=== PATIENT | male | born 2000 | race Caucasian/White ===

== ENCOUNTER 2021-06-09 15:41 | Emergency (ER) | payer BC, SELFPAY ==
[2021-06-09 15:41] VITALS: BP 131/86; PULSE 81; RESP 16; TEMP 36.7; O2SAT 100
--- NOTE | 2021-06-09 16:15 | DI.RAD_ITS ---
Exam(s) XR CLAVICLE LT EXAM: XR CLAVICLE LT CLINICAL HISTORY: Trauma, Deformity. TECHNIQUE: 2D digital imaging was performed. COMPARISON: No exams were available for comparison FINDINGS: There is a comminuted displaced midshaft fracture of the left clavicle. AC joint is not distracted. No subjacent rib fractures evident. No pneumothorax IMPRESSION: Comminuted displaced midshaft clavicle fracture. DATA REPOSITORY: RADIATION DOSE DELIVERED:
--- NOTE | 2021-06-09 16:15 | DI.CT_ITS ---
Exam(s) CT HEAD CERVICAL SPINE WO EXAM: CT HEAD CERVICAL SPINE WO CLINICAL HISTORY: Closed Head Injury, Snowboarding. TECHNIQUE: Imaging Protocol: Axial computed tomography images with coronal and sagittal reformatted images were created and reviewed COMPARISON: No exams were available for comparison FINDINGS: BRAIN: There are no skull fractures nor fluid in the visualized paranasal sinuses. There is no evidence of intracranial hemorrhage, mass effect, or shift of midline structures. There are no extra-axial fluid collections. The ventricles are not enlarged or shifted and there is no blo od within the ventricular system nor within the basal cisterns. CERVICAL SPINE: There is no evidence of fracture nor listhesis. No significant prevertebral soft tissue swelling. There is no significant facet joint malalignment. No significant osseous lesions evident. IMPRESSION: No acute intracranial findings on this noninfused CT scan of the brain. No evidence of cervical spine fracture, malalignment, nor acute compromise of the cervical spinal can al. Report called by myself to ER 06/09/2021 at 5:21 p.m.. RADIATION DOSE DELIVERED: 1,557.23mGy.cm Total DLP DATA REPOSITORY: All CT scans at this facility are submitted to the National Radiology Data Registry (NRDR) Dose Index Registry (DIR) with the [employer] (ACR). RADIATION OPTIMIZATION: All CT scans at this facility use at least one of these dose optimization te chniques: automated exposure control; mA and/or kV adjustment per patient size (includes targeted exa ms where dose is matched to clinical indication); or iterative reconstruction.
--- NOTE | 2021-06-09 16:21 | ED.GENADUL_ITS ---
Discharge Plan Disposition Patient Disposition: HOME Condition: Stable Discharge Details Clinical Impression: Closed fracture of left clavicle, Closed head injury due to snowboarding Primary Care Provider: Unknown,Unknown ED Provider: Michelle Eddy Home Meds and New Rx's Prescriptions: No Action No Known Home Meds 0RF Discharge Instructions Instructions: Clavicle Fracture (ED), Head Injury (ED) Additional Instructions: Please present to the day surgery unit at 7 AM on June 11. Do not eat or drink anything other than small sips of water after midnight on Friday night. Dr. Negrete orthopedic surgeon will call you tomorrow to discuss details. Wear sling for comfort. Rest, ice. Please take Tylenol or Ibuprofen with food every 4-6 hours as needed for pain and swelling. Please return to the emergency department for any worsening headache, nausea vomiting, abdominal pain, chest pain or any concerns. Referrals: Jacky Negrete MD [ [facility] STAFF PHYSICIAN] - 06/11/21 7:00 am Medical Decision Making 20-year-old male presents to the ER status post snowboarding accident. Patient was going over a jump when he landed wrong and fell face first and slid down the mountain. Patient is unsure of LOC consciousness. He does have some superficial abrasions noted to his forehead and bridge of his nose. He also is complaining of some left clavicle pain. CT head and C-spine ordered, x-ray of left clavicle, ibuprofen and Zofran. CT Head and C-spine: IMPRESSION: No acute intracranial findings on this noninfused CT scan of the brain. No evidence of cervical spine fracture, malalignment, nor acute compromise of the cervical spinal canal. XR Clavicle: FINDINGS: There is a comminuted displaced midshaft fracture of the left clavicle. AC joint is not distracted. No subjacent rib fractures evident. No pneumothorax IMPRESSION: Comminuted displaced midshaft clavicle fracture. 1739: Discussed case with Dr. Negrete who is on-call for orthopedic surgery he does recommend surgery. He states that patient can present to day surgery unit at 7 AM on Friday and maintain n.p.o. status after midnight on Friday he recommends a sling and rest. I did discuss recommendation with patient who verbalizes understanding and is in agreement with plan. Patient given discharge instructions and strict return instructions he verbalizes understanding. Discussed home care patient was placed in sling prior to discharge. This text was generated using [employer] dictation system, please disregard any oddities of phrase or misspellings. HPI General Mode of arrival: EMS . Date/Time Provider Initiated Documentation: 06/09/21 16:11 . Limitations to Documentation: no limitations . Information obtained by: patient and RN notes reviewed . HPI Narrative: 20-year-old male presents to the ER status post snowboarding accident. Patient was going over a jump when he landed wrong and fell face first and slid down the mountain. Patient is unsure of LOC consciousness. He does have some superficial abrasions noted to his forehead and bridge of his nose. He also is complaining of some left clavicle pain. There is deformity and swelling noted to the mid clavicular area. Elbow is full range of motion, no tenderness or de formity. Denies any chest pain, no abdominal pain. Last tetanus shot was approximately 2 years ago. He did not take any medications prior to arrival. He did report an episode where he became dizzy and nauseous however that has resolved. He denies any blurry vision or double vision. No other signs of trauma. Related Data Home Medications Medication Instructions Recorded Confirmed Unknown [No Known Home Meds] 06/09/21 06/09/21 Allergies Allergy/AdvReac Type Severity Reaction Status Date / Time No Known Allergies Allergy Unverified 06/09/21 15:45 General Stated Complaint: Trauma DENNISE: 2 Review of Systems All systems reviewed & are unremarkable except as noted in HPI and below Musculoskeletal Musculoskeletal: Reports as per HPI and Reports deformity Integumentary/Breasts Skin/Breast: Reports wounds (Abrasions to face) [facility] All Active Problems (Updated 06/09/21 @ 17:43 by Michelle Eddy) Closed fracture of left clavicle (Acute) Closed head injury due to snowboarding (Acute) Social History Smoking/Tobacco Use Status: Never Smoking risk assessment performed?: Yes Alcohol Intake: current Alcohol Intake frequency: holidays/special occasions only Substance use type: does not use Exam Narrative Exam Narrative: General: Well Developed, Awake and Alert, conversant. Skin: Warm and Dry HEENT: Head: No palpable deformities, Normocephalic Eyes: Pupils PERRLA, EOM's intact. No periorbital eccymosis or step off Ears: Canal patent. Tympanic membranes are clear . No saenz's sign, no hemptympanum. Nose/Face: Superficial abrasions noted to forehead and bridge of nose. There is some swelling noted to the bridge of the nose, no signs of epistaxis. Facial bones nontender to palpation and stable with manipulation. Mouth/Throat: No intraoral trauma. Teeth and mandible are intact. Neck: No midline tenderness, no step off, no deformity to palpation of C-spine. Trachea midline. Chest: No surface trauma. Nontender without crepitus or deformity. Lungs clear to ausculatation bilaterally. Heart: RRR, no rubs, murmurs or gallop. Abdomen: No abrasions, ecchymosis, or surface trauma. Nondistended. Nontender to palpation no guarding, rebound, or rigidity. Pelvis: Nontender to palpation and stable to compression. Femoral pulses strong and equal Extremities: no surface trauma. Sensation intact. Peripheral pulses intact and equal. Left clavicle tenderness. Swelling noted at the mid clavicular area. Neuro: ANO x4, GCS 15, cranial nerves II through XII intact. Motor and sensory exam nonfocal. Reflexes are symmetric. Course Vital Signs Vital signs: Vital Signs Temperature 36.7 C 06/09/21 15:41 Pulse 81 06/09/21 15:41 Respiratory Rate 16 06/09/21 15:41 Blood Pressure 131/86 06/09/21 15:41 Pulse Oximetry 100 06/09/21 15:41 Temperature 36.7 C 06/09/21 15:41 Temperature Source Skin 06/09/21 15:41 Pulse 81 06/09/21 15:41 Respiratory Rate 16 06/09/21 15:41 Respiratory Effort 06/09/21 15:56 Respiratory Depth Normal 06/09/21 15:56 Respiratory Pattern Normal 06/09/21 15:56 Blood Pressure 131/86 06/09/21 15:41 Blood Pressure Position Supine 06/09/21 15:41 Pulse Oximetry 100 06/09/21 15:41 Oxygen Delivery Method Room Air 06/09/21 15:41 Oxygen Flow Rate 0 06/09/21 15:41 Pain Level 7 06/09/21 15:56
[2021-06-09] MEDS: Ondansetron O.D.T. 4 MG TABEF PO (17:00)
[2021-06-09] MEDS: Ibuprofen 600 MG TAB PO (17:00)
[2021-06-09 17:01] VITALS: BP 115/65; PULSE 81; RESP 16; O2SAT 99
--- NOTE | 2021-06-09 17:40 | DI.VRAD_ITS ---
PROCEDURE INFORMATION: Exam: CT Head Without Contrast Exam date and time: 06/09/2021 4:21 PM Age: 20 years old Clinical indication: Other: Closed head injury, snowboarding; Other: Snowboarding accident TECHNIQUE: Imaging protocol: Computed tomography of the head without contrast. COMPARISON: No relevant prior studies available. FINDINGS: Brain: Normal. No intraxial or extraaxial hemorrhage. No infarct visible at this time. Unremarkable white matter. No mass effect. No significant involutional change. Cerebral ventricles: Normal. No ventriculomegaly or midline shift. Pituitary gland and sella: Normal. No enlargement. Paranasal sinuses: Visualized sinuses are unremarkable. No fluid levels or mucosal thickening. Mastoid air cells: Visualized mastoid air cells are well aerated. Orbital cavity: Unremarkable. Vasculature: No significant atherosclerotic calcification. Bones/joints: Unremarkable. No acute fracture. Soft tissues: Unremarkable. IMPRESSION: Normal head CT. PROCEDURE INFORMATION: Exam: CT Cervical Spine Without Contrast Exam date and time: 06/09/2021 4:21 PM Age: 20 years old Clinical indication: Other: Closed head injury, snowboarding; Other: Snowboarding accident TECHNIQUE: Imaging protocol: Computed tomography images of the cervical spine without contrast. COMPARISON: No relevant prior studies available. FINDINGS: Bones/joints: Vertebral bodies are normal in height and alignment with no fracture. Facet joints show no significant degenerative change. Discs/Spinal canal/Neural foramina: No significant disc protrusion. No severe spinal canal stenosis. No significant neural foraminal narrowing. Lungs: Lung apices are clear. Soft tissues: Unremarkable. No prevertebral soft tissue swelling. IMPRESSION: No acute findings. Dictated and Authenticated by: Lg Meyers MD. Ordering:NAMITA Martinez MD
[2021-06-09 18:27] LABS: Source Nasal/Nares
[2021-06-09 19:05] LABS: COVID-19 PCR Negative (Negative)
== END 2021-06-09 18:22 | disposition home or self-care (01) ==
PROVIDERS: Emergency Provider Registered Nurse Emergency
DX: S42.022A Displaced fracture of shaft of left clavicle, initial encounter for closed fracture (principal); S09.8XXA Other specified injuries of head, initial encounter; V00.311A Fall from snowboard, initial encounter
CPT/HCPCS: 87635; 99283; 99284; 70450; 72125; 73000

== ENCOUNTER 2021-06-11 06:54 | Day surgery (SDC) | payer BC, SELFPAY ==
[2021-06-11] VITALS (14 sets, daily range): BP systolic 97–130; BP diastolic 48–76; PULSE 55–79; RESP 12–20; TEMP 36.3–37.1; O2SAT 94–100; BMI 21.8
--- NOTE | 2021-06-11 06:23 | ANES.PREOP_ITS ---
General Info Surgical Procedure: Operation Date: 06/11/21 08:40 Proposed Procedure Side Surgeon p Shoulder ORIF Clavicle Left Jacky Negrete MD Meds Allergies and Home Medications Allergies Allergy/AdvReac Type Severity Reaction Status Date / Time No Known Allergies Allergy Unverified 06/11/21 07:24 Home Medication Medication Instructions Recorded naproxen 250 mg tablet 250 - 500 mg PO BID PRN #40 tab 06/11/21 oxycodone 5 mg tablet 5 - 10 mg PO Q4H PRN #18 tab MDD 06/11/21 30 mg Current Visit Medications: Current Medications Generic Name Dose Route Start Last Admin Trade Name Freq PRN Reason Stop Dose Admin Naproxen 250 - 500 mg 06/11/21 05:42 Naproxen 500 Mg Tab PO BID PRN PRN Oxycodone HCl 5 - 10 mg 06/11/21 05:42 Oxycodone 5 Mg Tab PO Q4H PRN PRN PFSH Active Problems Active Problems: Problem Status Onset Code Closed fracture of left clavicle 06/09/21 S42.002A Closed head injury due to snowboarding S09.90XA, Y93.23 Medical History Medical History No pertinent past medical history Surgical History Surgical History No pertinent past surgical history Tobacco Smoking/Tobacco Use Status: Never Alcohol Alcohol Intake: current Alcohol intake frequency: holidays/special occasions only Substance Use Substance use type: does not use Vital Signs and Lab Results Lab Results Blood Type / Crossmatch: No Data to Display Complete Blood Count: No Data to Display Complete Metabolic Panel: No Data to Display Liver Function Panel: No Data to Display Coagulation Panel: No Data to Display Cardiac Panel: No Data to Display Arterial Blood Gas: No Data to Display Venous Blood Gas: No Data to Display Pancreas Panel: No Data to Display Thyroid Panel: No Data to Display Infectious Disease: Coronavirus (COVID-19)(PCR) Negative (Negative) 06/09/21 18:20 06/09/21 Coronavirus 2019 Source Nasal/Nares 06/09/21 18:20 06/09/21 Blood Cultures: No Data to Display Toxicology Panel: No Data to Display Anesthesia Assessment and Plan Anesthesia History Personal History: No History of Anesthesia Complications Family History: No Family History of Anesthesia Complications Exercise Tolerance Exercise Tolerance: Metabolic Equivalents>4 ASA Classification Emergency Case?: No Anesthesia Plan Resuscitation Status: Full Code Anesthesia Technique: General Anesthesia Airway Planned: LMA Pain Management: Surgeon and patient request nerve block Monitors Used: Standard Monitors Preoperative Comments:: 20 yo with clavicle ORIF after fall snowboarding, c- spine cleared in ED, unsure of LOC. Sig PMHx: denies.
[2021-06-11] MEDS: Lactated Ringers 1,000 ML 30 ML IV ×2 (08:04→10:02)
--- NOTE | 2021-06-11 08:28 | HPE_ITS ---
Date of service: 06/11/21 Time of Service: 08:23 Assessment and Plan Assessment and plan (1) Closed fracture of left clavicle: Status: Acute Assessment and plan: 20-year-old male with widely displaced left clavicle fracture Discussed thoroughly over the phone over the weekend and in person again today options for nonoperative management versus surgery sooner than later or after follow-up Decision to proceed with surgery today: left clavicle ORIF The risks, benefits, and alternatives were thoroughly discussed. Including inferior incisional numbness somewhat expected. Patient was counseled regarding pain management, expected postoperative course, and recovery timeline. Likely plan on hardware removal after complete healing 6 months - 1 year postop. All questions were answered. Informed consent was obtained. Agree and understand treatment plan. Follow up 10-14 days after surgery. Breathing comfortably on room air. No coughs or wheezes. 2+ left radial pulse. Regular rate and rhythm. History of Present Illness History of Present Illness Chief Complaint: Left clavicle fracture Narrative: Patient scribes snowboarding accident landing hard on left side with sudden onset severe left clavicle pain and deformity. Resolved head and neck issues after briefly possibly losing consciousness. Comfortable at home reviewed options over the phone decision to proceed with fixation sooner than later for widely displaced clavicle fracture given young age and high function. Return to day surgery today. No pre-existing issues. Physically active at [facility]. Planning to enlist would like hardware removed in the future. [id number]. Review of Systems Narrative: As per HPI, otherwise negative. Negative left upper extremity numbness tingling. Negative neck pain. Negative headache, difficulty thinking, sleeping, or with vision or cognition. PFSH All Active Problems Closed fracture of left clavicle (Acute 06/09/21) Closed head injury due to snowboarding (Acute) Medical History No pertinent past medical history Surgical History No pertinent past surgical history Social History Smoking/Tobacco Use Status: Never Smoking risk assessment performed?: Yes Alcohol Intake: current Alcohol Intake frequency: holidays/special occasions only Alcohol type: beer Substance use type: does not use Details: alcohol: hany Do you feel safe at home: Yes Do you feel safe in your relationship?: No Meds Allergies and Home Medications Allergies Allergy/AdvReac Type Severity Reaction Status Date / Time No Known Allergies Allergy Unverified 06/11/21 07:24 Home Medications Medication Instructions Recorded Confirmed Type ibuprofen 400 mg tablet 400 mg PO Q6H 06/11/21 06/11/21 History Exam Narrative Exam Narrative: Obvious left chest clavicle prominence deformity ecchymosis and surround edema. Tender over this area. Nontender remainder of extremity and neck. Demonstrates active range of motion intact neurovascular distally.
--- NOTE | 2021-06-11 08:34 | W.ANESPRE ---
General Info Date of Service Date Performed: 06/11/21 Height: 5 ft 6 in Weight: 61.4 kg Body Mass Index (BMI): 21.8 Surgical Procedure: Operation Date: 06/11/21 10:10 Proposed Procedure Side Surgeon p Shoulder ORIF Clavicle Left Jacky Negrete MD Meds Allergies and Home Medications Allergies Allergy/AdvReac Type Severity Reaction Status Date / Time No Known Allergies Allergy Unverified 06/11/21 07:24 Home Medication Medication Instructions Recorded naproxen 250 mg tablet 250 - 500 mg PO BID PRN #40 tab 06/11/21 oxycodone 5 mg tablet 5 - 10 mg PO Q4H PRN #18 tab MDD 06/11/21 30 mg Current Visit Medications: Current Medications Generic Name Dose Route Start Last Admin Trade Name Freq PRN Reason Stop Dose Admin Ringer's Solution 1,000 mls @ 30 mls/hr 06/11/21 06:00 06/11/21 08:04 IV 07/11/21 23:59 30 mls/hr INFUSION HUGH Administration Cefazolin Sodium/Dextrose 2 gm in 50 mls @ 100 mls/hr 06/11/21 06:00 Ancef Duplex IVPB 06/11/21 16:00 PREOP HUGH IV Miscellaneous Supplies 1 each 06/11/21 06:00 Iv Access IV 07/11/21 23:59 DIRECTED HUGH Naproxen 250 - 500 mg 06/11/21 05:42 Naproxen 500 Mg Tab PO BID PRN PRN Oxycodone HCl 5 - 10 mg 06/11/21 05:42 Oxycodone 5 Mg Tab PO Q4H PRN PRN Sodium Chloride 0 ml 06/11/21 06:00 Normal Saline Flush 10 Ml Syr IV 07/11/21 23:59 PRN PRN Sodium Chloride 0 ml 06/11/21 06:00 Normal Saline 10 Ml Vial IJ 07/11/21 23:59 DIRECTED PRN Sterile Water 0 ml 06/11/21 06:00 Water,Injection,Sterile 10 Ml Vial IJ 07/11/21 23:59 DIRECTED PRN PFSH Active Problems Active Problems: Problem Status Onset Code Closed fracture of left clavicle 06/09/21 S42.002A Closed head injury due to snowboarding S09.90XA, Y93.23 Medical History Medical History No pertinent past medical history Medical History Comments:: Pt. reports giving 1 pint bood on 06/07/21 Surgical History Surgical History No pertinent past surgical history Tobacco Smoking/Tobacco Use Status: Never Alcohol Alcohol Intake: current Alcohol intake frequency: holidays/special occasions only Alcohol type: beer Substance Use Substance use type: does not use Details: alcohol: hany Vital Signs and Lab Results Vital Signs Most Recent Vital Signs in EMR: Most Recent Vital Signs Temp Pulse Resp BP Pulse Ox 36.6 C 61 18 120/76 99 06/11/21 07:28 06/11/21 07:28 06/11/21 07:28 06/11/21 07:28 06/11/21 07:28 Lab Results Blood Type / Crossmatch: No Data to Display Complete Blood Count: No Data to Display Complete Metabolic Panel: No Data to Display Liver Function Panel: No Data to Display Coagulation Panel: No Data to Display Cardiac Panel: No Data to Display Arterial Blood Gas: No Data to Display Venous Blood Gas: No Data to Display Pancreas Panel: No Data to Display Thyroid Panel: No Data to Display Infectious Disease: Coronavirus (COVID-19)(PCR) Negative (Negative) 06/09/21 18:20 06/09/21 Coronavirus 2019 Source Nasal/Nares 06/09/21 18:20 06/09/21 Blood Cultures: No Data to Display Toxicology Panel: No Data to Display Anesthesia Assessment and Plan Anesthesia History Personal History: No History of Anesthesia Complications Family History: No Family History of Anesthesia Complications Exercise Tolerance Exercise Tolerance: Metabolic Equivalents>4 Pertinent Negatives Pertinent Negatives: No Symptoms of GERD, No Major Cardiovascular Symptoms or Complaints, No Major Pulmonary Symptoms or Complaints and No History of CVA/TIA Cardiac & Pulmonary Exam Cardiac Exam: Normal S1/S2 Heart Sounds Pulmonary Exam: Clear Bilateral Breath Sounds Implantable Cardiac Device Does patient have a Pacemaker or an ICD?: No Airway Exam Known Difficult Airway: No Mallampati Class: 1 Mouth Opening: Normal (> 3cm) Thyromental Distance: Greater than 3 cm Neck Range of Motion: Full ROM Neck Circumference: Normal Teeth Condition: Normal Dentition Airway Comments: #21 chipped and repaired ASA Classification ASA Score: ASA 1 Emergency Case?: No NPO Status NPO Status: NPO Clears >2 hours, Solids >8 hours Anesthesia Plan Resuscitation Status: Full Code Anesthesia Technique: General Anesthesia Airway Planned: Endotracheal Tube Pain Management: Surgeon and patient request nerve block (Interscalene) Monitors Used: Standard Monitors
--- NOTE | 2021-06-11 08:39 | NUR.NOTE ---
0828: Dave Marquez, pt's father, contacted by this nurse. Father to arrive in area around 0930. Father states he will transport pt. back to [place] after procedure. Dequan Hawkins CRNA, aware. was made aware that father would be in area around 0930.Nursing Note:
--- NOTE | 2021-06-11 08:45 | DI.RAD_ITS ---
Exam(s) XR CLAVICLE LT LIMITED 1V EXAM: XR CLAVICLE LT LIMITED 1V CLINICAL HISTORY: LEFT CLAVICLE FRACTURED. TECHNIQUE: 2D digital imaging was performed. COMPARISON: No exams were available for comparison FINDINGS: Fluoroscopy was provided intraoperatively during ORIF of comminuted fracture of the left clavicle. S procedure report for details. Total fluoroscopy time 5.8 seconds Total clipped of dose= 0.2349mGy IMPRESSION: DATA REPOSITORY: RADIATION DOSE DELIVERED:
--- NOTE | 2021-06-11 09:12 | W.ANESNERVE ---
Nerve Block Single Injection Procedure Date and Time Date Performed: 06/11/21 Procedure Start: 09:13 Location Where Procedure Performed Procedure Location: Day Surgery Unit Reason Performed: Postoperative Analgesia Requesting Provider: Jacky Negrete Timeout Performed Timeout Performed: Yes Monitoring Used ECG, Blood Pressure and SpO2 Sterility Sterility: Hand Hygiene, Surgical Cap, Surgical Mask, Sterile Gloves, Eye Protection and Chlorhexidine Sedation Given During Procedure Sedation Given (Indicate Dose Given): Versed IV Dose:: 2 mg Patient Mental Status Patient Mental Status: Sedate with meaningful communication Nerve Block 1st Nerve Block: Laterality: Left Block Type: Interscalene Needle / Catheter Used: 100mm SonoPlex II Local Anesthetic Bolus (Indicate Dose Given): Lidocaine used for local infiltration of skin, Injected in 3-5ml increments after negative blood aspiration, Bupivacaine 0.5% Dose:: 10 cc and Exparel Dose:: 10 cc Additives (Indicate Dose Given): None Ultrasound: Sterile probe cover and gel used Ultrasound Image Saved?: Yes Nerve Stimulator: Not Used Paresthesia: None Procedure Tolerated: No Complications and Patient tolerated well Procedure Outcome: Successful Performed By: Dequan Frey
--- NOTE | 2021-06-11 10:00 | W.PM.OP ---
Date of service: 06/11/21 Time of Service: 10:00 Operative Note Operative Note DATE OF PROCEDURE: 06/11/21 PRE-OP DIAGNOSIS: Displaced segmental left midshaft clavicle fracture POST-OP DIAGNOSIS: same PROCEDURE: Left clavicle open reduction internal fixation, CPT #57028 SURGEON: Jacky Negrete MANUFACTURING MAINTENANCE MANAGER: Shaina Hui Refer to Anesthesia Record COMPLICATIONS: None Patient was transported to: PACU Patient's condition: stable Implants: Synthes 3.5 mm superior clavicle plate x7 holes with 3x cortex screws medial lateral fracture site. A single 3.5 mm lag screw anterior posterior segmental component. Indications: Please see complete medical record for details. Procedure Description: In the operating room, general anesthesia was induced. The patient was positioned supine on the operating room table. All bony prominences were well-padded. Preoperative antibiotics were administered. The left clavicle was prepped and draped in the usual sterile fashion. The correct patient, procedure, and side of the procedure were all verified prior to incision. Under manual and fluoroscopic guidance 30 cc of lidocaine with epinephrine and bupivacaine plain mixture was infiltrated about the clavicle surgical site medial and laterally. Sharp dissection was carried through skin raising full-thickness flaps down to the bone at the obvious prominent fracture. The incision was extended medially and laterally as needed for superior clavicle plating preserving anterior clavicle soft tissue attachments. There were no notable supraclavicular nerves. The large segmental lateral bone piece was manipulated into position with the lateral aspect of the fracture. A single lag screw was placed with good fixation strength. The medial and lateral fractures were then aligned and provisionally clamped in place while appropriately sized clavicle plate was applied and centered over the fracture site. Cortex was replaced medial lateral fracture site to compress plate to bone and center the plate appropriately. These were tightened followed by placement of additional bicortical cortex screws medial lateral to the fracture site all with excellent fixation strength. There is excellent fracture reduction. Demonstrated gross strong stability. Fluoroscopy confirmed appropriate reduction and hardware placement. Wound was irrigated with normal saline. Deep tissue was closed watertight fashion using 2-0 Monocryl interrupted. Skin was closed in 3-0 Monocryl running. Skin glue was applied over the incision followed by Mepilex bandage. The patient awoke from anesthesia without complication and was transferred to the recovery room in a stable condition.
[2021-06-11] MEDS: ceFAZolin 2 GM/50 ML BAG IVPB (10:20)
[2021-06-11] MEDS: Normal Saline 100 ML 250 ML (11:07)
[2021-06-11] MEDS: Tranexamic Acid 1,000 MG/10 ML VIAL 1000 MG (11:07)
[2021-06-11] MEDS: Bupivacaine 0.25% Pres-Free 30 ML VIAL (11:28)
--- NOTE | 2021-06-11 12:06 | PDOC.DSDIS_ITS ---
Discharge Plan Disposition Patient Disposition: HOME Condition: Stable Discharge Details Reason For Visit: Left clavicle surgery Attending Provider: Jacky Negrete Primary Care Provider: Unknown,Unknown Home Meds and New Rx's Prescriptions: New naproxen 250 mg tablet 250 - 500 mg PO BID PRNQty: 40 0RF Rx Instructions: take with a meal oxycodone 5 mg tablet 5 - 10 mg PO Q4H MDD 30 mg PRN (Reason: moderate to severe pain) Qty: 18 0RF Discontinued ibuprofen 400 mg Tablet 400 mg PO Q6H 0RF Label Comments: pt. reports taking 400 mg every 4-5 hours Discharge Instructions Additional Instructions: Surgery: Left clavicle ORIF Activity: Nonweightbearing left upper extremity. Gentle range of motion near the body. Sling whenever up and about or out of the home for 6 weeks. No physical training or significant physical activity until bone healing about 2-3 months. A physical therapy prescription will be provided in the office at follow-up if needed. Prescriptions: Naproxen 250 mg take 1-2 every 12 hours with a meal as needed for moderate pain Oxycodone 5 mg take 1-2 every 4-6 hours as needed for severe pain You may use [id number] Tylenol (acetaminophen) as needed for mild pain. These pain medications may be taken all at once or in different combinations as needed. Also, recommend Colace (docusate) as a stool softener as surgery and pain medicine cause constipation. Dressings: Leave splint and dressing in place until follow-up. Keep clean and dry at all times. Follow-up: 10-[address] Negrete Let us know right away if you develop any redness, drainage, fevers, chest pain, or trouble breathing. Do not drink alcohol or drive for at least 24 hours after anesthesia. Please call the office during business hours with any questions or concerns. Referrals: Jacky Negrete MD [ [facility] STAFF PHYSICIAN] - Discharge Orders Discharge Orders: Discharge Order (Routine); Ordered 06/11/21 Ordered By: Jacky Negrete DS: Diagnosis Discharge Diagnosis (1) Closed fracture of left clavicle: Status: Acute
--- NOTE | 2021-06-11 14:07 | W.ANESPOSTOP ---
Postoperative Evaluation Date, Time and Location Date Performed: 06/11/21 Time Performed: 14:08 Patient Location: Day Surgery Unit Vital Signs Most Recent Imported Vital Signs: Most Recent Vital Signs Temp Pulse Resp BP Pulse Ox 36.4 C L 58 L 12 106/74 100 06/11/21 13:30 06/11/21 13:30 06/11/21 13:30 06/11/21 13:30 06/11/21 13:30 Pain Score Most Recent Pain Score: Most Recent Pain Score Pain Level 0 06/11/21 13:30 Assessment Mental Status: Awake (Alert & Oriented to Patient Baseline) Airway and Respiratory Function: Patent airway with normal (patient baseline) respiratory exam Cardiovascular Function: Hemodynamically Stable Hydration Status: Adequately Hydrated Nausea & Vomiting: No Nausea or Vomiting Pain: Pt. Denies Any Pain Peripheral Nerve Block: Patient did not receive a nerve block
== END 2021-06-11 15:52 | disposition home or self-care (01) ==
LOC: SUR 06:59
PROVIDERS: Visit Provider Student in an Organized Health Care Education/Training Program
PROC: (CPT 23515; principal; 2021-06-11 10:00)
DX: S42.022A Displaced fracture of shaft of left clavicle, initial encounter for closed fracture (principal); W19.XXXA Unspecified fall, initial encounter; Y93.23 Activity, snow (alpine) (downhill) skiing, snowboarding, sledding, tobogganing and snow tubing
CPT/HCPCS: 23515; 76942; 73000; J0131; J0690; J1100; J1200; J1885; J2001; J2250; J2405

== ENCOUNTER 2021-06-21 15:30 | Outpatient (CLI) | payer BC, SELFPAY ==
--- NOTE | 2021-06-21 14:00 | DI.RAD_ITS ---
Exam(s) XR CLAVICLE LT EXAM: XR CLAVICLE LT INDICATION: S/P ORIF LEFT CLAVICLE. COMPARISON: CR XR CLAVICLE LT from 06/09/2021 TECHNIQUE: 2D digital imaging was performed. FINDINGS: There has been no change in fracture or hardware alignment. No new abnormalities. DATA REPOSITORY: RADIATION DOSE DELIVERED:
== END 2021-06-21 15:31 | disposition home or self-care (01) ==
LOC: DIORS 15:31
PROVIDERS: Visit Provider Physician Assistant Surgical
DX: S42.022D Displaced fracture of shaft of left clavicle, subsequent encounter for fracture with routine healing (principal); V00.311D Fall from snowboard, subsequent encounter
CPT/HCPCS: 73000

== ENCOUNTER 2021-07-17 14:24 | Outpatient (CLI) | payer BC, SELFPAY ==
--- NOTE | 2021-07-17 14:15 | DI.RAD_ITS ---
Exam(s) XR CLAVICLE LT EXAM: XR CLAVICLE LT CLINICAL HISTORY: Left clavicle fx f/u. TECHNIQUE: 2D digital imaging was performed. Two images were obtained. AP and axial views were obta ined. COMPARISON: CR XR CLAVICLE LT from 06/21/2021 FINDINGS: BONES: There are stable post operative changes present. No new fracture or dislocation. JOINTS: The joint spaces are well maintained. No joint effusion is present. SOFT TISSUE: Normal. IMPRESSION: Stable postoperative changes. DATA REPOSITORY: RADIATION DOSE DELIVERED:
== END 2021-07-17 14:25 | disposition home or self-care (01) ==
LOC: DIORS 14:25
PROVIDERS: Visit Provider Student in an Organized Health Care Education/Training Program
DX: S42.022D Displaced fracture of shaft of left clavicle, subsequent encounter for fracture with routine healing (principal); V00.311D Fall from snowboard, subsequent encounter
CPT/HCPCS: 73000

== ENCOUNTER 2021-08-14 11:21 | Outpatient (CLI) | payer BC, SELFPAY ==
--- NOTE | 2021-08-14 11:00 | DI.RAD_ITS ---
Exam(s) XR CLAVICLE LT EXAM: XR CLAVICLE LT CLINICAL HISTORY: left clavicle fx f/u. TECHNIQUE: 2D digital imaging was performed. Two images were obtained. AP and axial views were obta ined. COMPARISON: CR XR CLAVICLE LT from 07/17/2021 FINDINGS: BONES: There are stable post operative changes present. No new fracture or dislocation. JOINTS: The joint spaces are well maintained. No joint effusion is present. SOFT TISSUE: Normal. IMPRESSION: Stable postoperative changes. DATA REPOSITORY: RADIATION DOSE DELIVERED:
== END 2021-08-14 11:22 | disposition home or self-care (01) ==
LOC: DIORS 11:21
PROVIDERS: Visit Provider Student in an Organized Health Care Education/Training Program
DX: S42.022D Displaced fracture of shaft of left clavicle, subsequent encounter for fracture with routine healing (principal); V00.311D Fall from snowboard, subsequent encounter
CPT/HCPCS: 73000